=== PATIENT | female | born 1935 | race Caucasian/White ===

== ENCOUNTER 2016-10-09 07:32 | Emergency (ER) | payer MEDICARE ==
[~2016-10-09] VITALS: Ht 152.4 cm; Wt 68.2 kg
[~2016-10-09 07:32] MED LIST: ASCO100089 PO; ASPI-973 PO; DESI25TA13 PO; GABA600T2 PO; GLUC100016 PO; LEVO112T4 PO; LEVO500T16 PO; LOVA40TA PO; MAGN250T29 PO; MULT-1018 PO; OMEG-38 PO; ONDA4TAB6 PO; PANT40TA3 PO; POTA99TA21 PO; PRAM0.5T3 PO; PROM25TA14 PO; QUET200T58 PO; RANI300C PO; VITA1TAB17 PO
--- NOTE | 2016-10-09 07:37 | ED.REPORT ---
HPI-Trauma Minor / Fall Date of Service Oct 09, 2016 ED Provider: Merline Rausch MD 81 year old female presents to the ER via EMS complaining of left rib pain status post mechanical ground level fall in the shower just prior to arrival. She states that she gets periodic "ticks" in her hands an feet, which was the cause of her fall today. Her assisted her after the fall, but she reports that it took her 15 minutes to get off of the ground. Patient denies head trauma, LOC, and anticoagulant use. Nursing Notes Stated Complaint: GROUND LEVEL FALL Nursing Notes Reviewed: Yes Allergies: Coded Allergies: codeine (Verified Allergy, Unknown, 05/25/15) tramadol (Verified Allergy, Unknown, vomiting, 05/25/15) Scheduled Ascorbic Acid (Vitamin C) 1,000 Mg Tab.chew 1,000 MG PO DAILY Aspirin (Aspirin) 81 Mg Tablet 81 MG PO DAILY Desipramine (Desipramine) 25 Mg Tablet 125 MG PO HS Gabapentin (Gabapentin) 600 Mg Tablet 600 MG PO QID Glucosamine Sulfate 2Kcl (Glucosamine) 1,000 Mg Tablet 1,000 MG PO DAILY Levofloxacin (Levaquin) 500 Mg Tablet 500 MG PO DAILY Levothyroxine (Levothyroxine) 112 Mcg Tablet 125 MCG PO DAILY Lovastatin (Lovastatin) 40 Mg Tablet 40 MG PO HS Magnesium Oxide (Magnesium) 250 Mg Tablet 250 MG PO DAILY Multivitamin (Multi Vitamin Daily) 1 Each Tablet 1 EACH PO DAILY [place]-3/Dha/Epa/Fish Oil (Fish Oil 1,000 mg Softgel) 1 Each Capsule 1 EACH PO DAILY Pantoprazole DR (Pantoprazole DR) 40 Mg Tablet.dr 40 MG PO DAILY Potassium Gluconate (Potassium) 99 Mg Tablet 1 TAB PO DAILY Pramipexole Dihydrochloride (Mirapex) 0.5 Mg Tablet 0.5-1 MG PO HS Quetiapine Fumarate (Quetiapine Fumarate) 200 Mg Tablet 300 MG PO HS Ranitidine (Ranitidine) 300 Mg Capsule 300 MG PO DAILY Vitamin B Complex (Vitamin B Complex) 1 Each Tablet 1 EACH PO DAILY Scheduled PRN Naproxen (Naproxen) 375 Mg Tablet 375 MG PO BID PRN PRN For Pain Ondansetron (Zofran) 4 Mg Tablet 4 MG PO Q4H PRN PRN For Nausea Promethazine (Promethazine) 25 Mg Tablet 25 MG PO Q6H PRN PRN For Nausea oxyCODONE-Acetaminophen 5-325 mg (oxyCODONE-Acetaminophen 5-325 mg) 1 Each Tablet 1-2 TAB PO Q6H PRN PRN For Pain General Time Seen by MD: 07:36 Chief Complaint Fall, Other (Rib Pain) Hx Obtained From: Patient Arrived By: Ambulance Onset Occurred: Just prior to arrival Symptom Duration: Since onset Caused by: Accidental, Fall on ground Context: Occurred at: Home injury Location: Back (Left Rib) Quality: Painful Severity: Current: Moderate Severity: Maximum: Moderate Associated with: Denies: Loss of consciousness, Neck pain Similar Sx Previous: No Past Medical History Past Medical History 1. Gastric reflux disease 2. Hypothyroidism 3. Depression 4. Dyslipidemia 5. Anxiety. 6. Chronic back pain. 7. Hiatal hernia Past Surgical History Partial colectomy. Smoking History Never Smoker Social History Alcohol Use: "Social" Drug Use: Denies drug use Other Social History: Ambulatory Status Independent Review of Systems Respiratory: Denies: Shortness of breath Musculoskeletal: Reports: Back pain, Thoracic pain, Denies: Extremity pain, Joint pain, Lumbar pain Neurologic: Denies: Dizziness, Headache, Lightheaded, Syncope Complete sys rev & neg: except as marked. Cardiovascular: Denies: Chest pain Physical Exam Initial Vital Signs Vital Signs (First) Date Time Temp Pulse Resp B/P Pulse Ox O2 Delivery O2 Flow Rate FiO2 10/09/16 07:41 36.5 76 8 90/52 93 Room Air Initial VS: Reviewed Head / Eyes: Atraumatic, Normocephalic Abdomen / GI: Soft, Non-tender, No guarding, No rebound, No distention Extremities: Vascular intact, Neuro intact, No swelling, No tenderness Skin: Warm, Dry, No cyanosis Neurologic: Alert, Oriented, Nonfocal Psychiatric: Mood/affect normal, Behavior normal, Normal thought content General/Constitutional: Awake, Alert, Well developed, Well nourished Neck: Atraumatic, Supple, Full range of motion, No swelling, Non-tender, No midline vertebral tend Respiratory / Chest: Breath sounds NL, Breath sounds = bilat, No respiratory distress, No rales, No rhonchi, No wheezing, No chest tenderness, No chest wall deformity, No crepitus Cardiovascular: Heart rate NL, Regular rhythm, Heart sounds NL, Cap refill not delayed, Peripheral circulation NL Back: Inspection NL, Full range of motion, No midline vertebral tend Trauma - Back Specific: Positive: Rib tender L nondeformed No bruising. Tenderness in axillary line and just posterior, T10-T12 Interpretation & Diagnostics X-Ray Chest Interpretation Chest Xray Interpretation: Rib fractures left side 8 and 9. 9 is minimally NO hemo pneumo, or other infiltrates. View: Portable, 1 view Interpretation / Wet Read by: Wet read ED physician Re-Eval/Medical Decision Source of Hx: Old records Re-Evaluation/Progress : Time of Eval: 08:33 Re-Evaluation/Progress Note: Patient is now accompanied by her and daughter. Discussed radiology results and plan to discharge. Patient is amenable to the plan. Return precautions given. All other questions addressed. Counseled Regarding: Diagnosis, Lab results, Need for follow-up, When/why to return to ED Discharge & Departure Impression: Primary Impression: Rib fractures Additional Impression: Fall Disposition: Home Discharge Condition All VS Reviewed: Yes Condition: Stable Patient Instructions: Rib Fracture (DC) Additional Instructions: Your X-ray indicates that you have broken your 8th and 9th rib on the left side. You will hurt more over the next couple days. for the pain, please use Naprosyn daily for the next week. Take 1 in the morning and 1 at night to control your pain. Do not take ibuprofen while taking Naprosyn. After the first week, you can choose weather you need the naprosen or not. For severe pain not controlled with naprosen, Take 1-[address] or consume alcohol while taking narcotic pain medications. Do not take Tylenol while taking this medication. It can cause constipation so use lots of water and extra fiber. Percoset has tylenol in it, so don't use additional tylenol. Once the pain is improving, you can use just tylenol instead of the percoset. Make sure to stay active, as tolerated, and take deep breaths. Use the incentive spirometer regularly through the day ( one or two big breaths with each TV commercial break is a great idea) to prevent pneumonia in that left side. Return to the ER if you develop worsening or concerning symptoms. I'm so sorry you broke your ribs. I hope you heal quickly. Referrals: Bella Gaspar MD (PCP) Scribe Attestation Portions of this note were transcribed by Jamshid Galeano. I, Dr. Rausch, personally performed the history, physical exam and medical decision-making; I reviewed and confirmed the accuracy of the information in the transcribed note. Signed by: Aleah Massey, 10/09/2016 and 08:39 copies to: Bella Gaspar MD, Shawna L MD Oct 09, 2016 07:37 JAMSHID GALEANO Oct 09, 2016 07:45
[2016-10-09 07:41] VITALS: BP 90/52; PULSE 76; RESP 8; O2SAT 93
[2016-10-09] MEDS ORDERED: Ketorolac 15 mg/mL Inj IVPUSH ONE (08:55)
[2016-10-09] MEDS ORDERED: NAPR375T2 PO (09:17)
[2016-10-09] MEDS ORDERED: OXYC1TAB24 PO (09:17)
[2016-10-09 09:40] VITALS: BP 97/62; PULSE 81; RESP 20; O2SAT 97
[2016-10-09 10:20] VITALS: BP 97/62; PULSE 81; RESP 20; O2SAT 97
--- NOTE | 2016-10-09 16:59 | DRSVH ---
PROCEDURE: X-RAY LEFT RIBS INCLUDEING PA CHEST, MINUMUM THREE VIEWS ([id number]) INDICATIONS: fall TECHNIQUE: 3 views of the left ribs were acquired, along with a single view chest. COMPARISON: [facility], CR, XR CHEST 2VW, 11/29/2015, 8:45. FINDINGS: Surgical changes and devices: None. Bones and chest wall: Mild cortical irregularity involving the left eighth posterior lateral rib. Lungs and pleura: Hiatal hernia present. Lungs are clear and no pneumothorax is present. Mediastinum: Mediastinal contours appear normal. Heart size is enlarged. IMPRESSION: Possible left eighth posterior lateral rib fracture and no pneumothorax is present. Dictated by: Collins Faustin RRA Interpreted: Mary Liu MD on 10/09/2016 at 8:54 Transcribed by: MARISSA on 10/09/2016 at 8:55 Approved by: Mary Liu MD, PhD on 10/09/2016 at 16:57
== END 2016-10-09 09:18 | disposition home or self-care (01) ==
LOC: SED 07:32 → EDBD 07:32 → SED 09:18
DX: S22.42XA Multiple fractures of ribs, left side, initial encounter for closed fracture (principal); W18.2XXA Fall in (into) shower or empty bathtub, initial encounter; Y93.E1 Activity, personal bathing and showering; Y99.8 Other external cause status; Y92.012 Bathroom of single-family (private) house as the place of occurrence of the external cause; K21.9 Gastro-esophageal reflux disease without esophagitis; E03.9 Hypothyroidism, unspecified; E78.5 Hyperlipidemia, unspecified; G89.29 Other chronic pain; Z90.49 Acquired absence of other specified parts of digestive tract; Z79.82 Long term (current) use of aspirin; Z88.5 Allergy status to narcotic agent; Z88.8 Allergy status to other drugs, medicaments and biological substances
CPT/HCPCS: 71101; 94640; 96374; 99284; J1885

== ENCOUNTER 2016-11-14 05:45 | Emergency (ER) | payer MEDICARE ==
[~2016-11-14] VITALS: Ht 152.4 cm; Wt 70.0 kg
[~2016-11-14 05:45] MED LIST changes: +NAPR375T2 PO; +OXYC1TAB24 PO
[2016-11-14 05:49] VITALS: BP 126/78; PULSE 96; RESP 18; O2SAT 95
--- NOTE | 2016-11-14 06:13 | ED.REPORT ---
HPI-Abd Pain F 40 and Over Date of Service Nov 14, 2016 ED Provider: Carlitos Garcia DO The patient is a 81 year old female w/ a hx of chronic constipation who presents to the ED due to constipation for the past 5 days. She takes milk of magnesia on a regular basis, took an extra large dose yesterday, but it was not effective. She also tried a dose of X-lax and an enema. After the enema, she produced some clear liquid, but no stool. She denies fever, vomiting, or abdominal pain. Nursing Notes Stated Complaint: CANT GO TO THE BATHROOM Chief Complaint: Female Abdominal Pain Nursing Notes Reviewed: Yes Allergies: Coded Allergies: codeine (Verified Allergy, Unknown, 05/25/15) tramadol (Verified Allergy, Unknown, vomiting, 05/25/15) Scheduled Ascorbic Acid (Vitamin C) 1,000 Mg Tab.chew 1,000 MG PO DAILY Aspirin (Aspirin) 81 Mg Tablet 81 MG PO DAILY Desipramine (Desipramine) 25 Mg Tablet 125 MG PO HS Gabapentin (Gabapentin) 600 Mg Tablet 600 MG PO QID Glucosamine Sulfate 2Kcl (Glucosamine) 1,000 Mg Tablet 1,000 MG PO DAILY Levofloxacin (Levaquin) 500 Mg Tablet 500 MG PO DAILY Levothyroxine (Levothyroxine) 112 Mcg Tablet 125 MCG PO DAILY Lovastatin (Lovastatin) 40 Mg Tablet 40 MG PO HS Magnesium Oxide (Magnesium) 250 Mg Tablet 250 MG PO DAILY Multivitamin (Multi Vitamin Daily) 1 Each Tablet 1 EACH PO DAILY [place]-3/Dha/Epa/Fish Oil (Fish Oil 1,000 mg Softgel) 1 Each Capsule 1 EACH PO DAILY Pantoprazole DR (Pantoprazole DR) 40 Mg Tablet.dr 40 MG PO DAILY Potassium Gluconate (Potassium) 99 Mg Tablet 1 TAB PO DAILY Pramipexole Dihydrochloride (Mirapex) 0.5 Mg Tablet 0.5-1 MG PO HS Quetiapine Fumarate (Quetiapine Fumarate) 200 Mg Tablet 300 MG PO HS Ranitidine (Ranitidine) 300 Mg Capsule 300 MG PO DAILY Vitamin B Complex (Vitamin B Complex) 1 Each Tablet 1 EACH PO DAILY Scheduled PRN Naproxen (Naproxen) 375 Mg Tablet 375 MG PO BID PRN PRN For Pain Ondansetron (Zofran) 4 Mg Tablet 4 MG PO Q4H PRN PRN For Nausea Polyethylene Glycol 3350 (Miralax) 17 Gm Powd.pack 17 GM PO DAILY PRN PRN For Constipation Promethazine (Promethazine) 25 Mg Tablet 25 MG PO Q6H PRN PRN For Nausea oxyCODONE-Acetaminophen 5-325 mg (oxyCODONE-Acetaminophen 5-325 mg) 1 Each Tablet 1-2 TAB PO Q6H PRN PRN For Pain General Time Seen by MD: 06:04 Chief Complaint Constipation Hx Obtained From: Patient Arrived By: Walk-in Sudden in Onset?: Yes Onset Occurred: 5 days ago Symptom Duration: Since onset Progression since Onset: Unchanged Severity: Current: No pain currently Recent Healthcare: No recent doctor visit, No recent hospitalization Similar Sx Previous: Yes Past Medical History Past Medical History 1. Gastric reflux disease 2. Hypothyroidism 3. Depression 4. Dyslipidemia 5. Anxiety. 6. Chronic back pain. 7. Hiatal hernia Past Surgical History Partial colectomy. Smoking History Never Smoker Social History Alcohol Use: "Social" Drug Use: Denies drug use Other Social History: Ambulatory Status Independent Review of Systems Constitutional: Denies: Fever GI: Reports: Constipation, Denies: Abdominal pain, Vomiting Complete sys rev & neg: except as marked. Physical Exam Vital Signs Vital Signs (First) Date Time Temp Pulse Resp B/P Pulse Ox O2 Delivery O2 Flow Rate FiO2 11/14/16 05:49 36.5 96 18 126/78 95 Room Air Initial VS: Reviewed Head / Eyes: Atraumatic, Normocephalic, PERRL ENT: Mucous membranes moist, Conjunctiva normal, No scleral icterus Skin: Warm, Dry Neurologic: Alert, Oriented Psychiatric: Mood/affect normal, Behavior normal General/Constitutional: Awake, Alert, Cooperative, Not toxic appearing Respiratory / Chest: Atraumatic, Breath sounds NL, Breath sounds = bilat Cardiovascular: Heart rate NL, Regular rhythm, Heart sounds NL, No gallop, No murmurs, No rubs Abdomen: Atraumatic, Soft, Non-tender, No guarding, No rebound, BS normoactive , No distention Back: Atraumatic, Full range of motion, Non-tender Rectum / Perineum: No fecal impaction Re-Eval/Medical Decision Med Decision/Clinical Course Constipation with a history of constipation and no vital sign abnormalities or abdominal pain on exam. Patient is given an enema and magnesium citrate in the ER. Additional bowel regimen is recommended. Return and follow-up precautions given. Counseled Regarding: Diagnosis, Lab results, Need for follow-up, When/why to return to ED Discharge & Departure Primary Impression: Constipation Constipation type: unspecified constipation type Qualified Code: K59.00 - Constipation, unspecified Disposition: Home Discharge Condition All VS Reviewed: Yes Condition: Stable Additional Instructions: Use the milk of magnesia 30 ml 2x/day. Take miralax daily. Do a Fleet enema, starting tomorrow daily for the next two days. Once you have a substantial bowel movement, return to your routine of 1 dose of milk of magnesia a day. Follow up with your primary care physician as needed. Return to the Emergency Department for any new or worsening symptoms including fever, vomiting, and abdominal pain. I hope you feel better soon! Referrals: Bella Gaspar MD (PCP) Herminioibe Attestation Portion of this note were transcribed by Carli Berkowitz. I, Dr. Garcia, personally performed the history, physical exam, and medical decision-making: I reviewed and confirmed the accuracy for the information in the transcribed note. Signed by: joyce Francis, 11/14/16 0800 copies to: Bella Gaspar MD, Timothy S DO Nov 14, 2016 06:13 Carli Berkowitz Nov 14, 2016 06:27
[2016-11-14] MEDS ORDERED: POLY17PO6 PO (07:08)
[2016-11-14 07:24] VITALS: BP 118/58; PULSE 88; RESP 12; O2SAT 99
[2016-11-14 07:25] VITALS: BP 118/58; PULSE 88; RESP 12; O2SAT 99
== END 2016-11-14 07:26 | disposition home or self-care (01) ==
LOC: SED 05:45
DX: K59.00 Constipation, unspecified (principal); K21.9 Gastro-esophageal reflux disease without esophagitis; E03.9 Hypothyroidism, unspecified; Z79.82 Long term (current) use of aspirin; Z88.5 Allergy status to narcotic agent

== ENCOUNTER 2017-01-03 14:07 | Emergency (ER) | payer MEDICARE ==
[~2017-01-03 14:07] MED LIST changes: +POLY17PO6 PO
[2017-01-03 14:12] VITALS: BP 124/76; PULSE 96; RESP 18; O2SAT 96
--- NOTE | 2017-01-03 15:08 | ED.REPORT ---
HPI-Abd Pain F 40 and Over Date of Service January 03, 2017 ED Provider: Dr. Tito Veronica The patient is a 81 year old female w/ a hx of chronic constipation, gastric reflux disease, hypothyroidism, dyslipidemia, and anxiety who presents to the ED due to constipation onset 4 days ago. C/o associated back pain. It has been 4 days since her last bowel movement. She does not have any kind of discomfort or any bowel urgency at all. She took milk of magnesia yesterday and Metamucil, x-lax, and a fleet enema this morning, with no relief of symptoms. She denies abdominal pain, nausea, vomiting, chest pain, and dysuria. The patient was seen at [facility] for similar symptoms on 11/14/16. Nursing Notes Stated Complaint: CONSTIPATION Chief Complaint: Female Abdominal Pain Nursing Notes Reviewed: Yes Allergies: Coded Allergies: codeine (Verified Allergy, Unknown, 05/25/15) tramadol (Verified Allergy, Unknown, vomiting, 05/25/15) Scheduled Ascorbic Acid (Vitamin C) 1,000 Mg Tab.chew 1,000 MG PO DAILY Aspirin (Aspirin) 81 Mg Tablet 81 MG PO DAILY Desipramine (Desipramine) 25 Mg Tablet 125 MG PO HS Gabapentin (Gabapentin) 600 Mg Tablet 600 MG PO QID Glucosamine Sulfate 2Kcl (Glucosamine) 1,000 Mg Tablet 1,000 MG PO DAILY Levofloxacin (Levaquin) 500 Mg Tablet 500 MG PO DAILY Levothyroxine (Levothyroxine) 112 Mcg Tablet 125 MCG PO DAILY Lovastatin (Lovastatin) 40 Mg Tablet 40 MG PO HS Magnesium Oxide (Magnesium) 250 Mg Tablet 250 MG PO DAILY Multivitamin (Multi Vitamin Daily) 1 Each Tablet 1 EACH PO DAILY [place]-3/Dha/Epa/Fish Oil (Fish Oil 1,000 mg Softgel) 1 Each Capsule 1 EACH PO DAILY Pantoprazole DR (Pantoprazole DR) 40 Mg Tablet.dr 40 MG PO DAILY Polyethylene Glycol 3350 (Miralax) 17 Gm Powd.pack 17 GM PO DAILY Potassium Gluconate (Potassium) 99 Mg Tablet 1 TAB PO DAILY Pramipexole Dihydrochloride (Mirapex) 0.5 Mg Tablet 0.5-1 MG PO HS Quetiapine Fumarate (Quetiapine Fumarate) 200 Mg Tablet 300 MG PO HS Ranitidine (Ranitidine) 300 Mg Capsule 300 MG PO DAILY Vitamin B Complex (Vitamin B Complex) 1 Each Tablet 1 EACH PO DAILY Scheduled PRN Naproxen (Naproxen) 375 Mg Tablet 375 MG PO BID PRN PRN For Pain Ondansetron (Zofran) 4 Mg Tablet 4 MG PO Q4H PRN PRN For Nausea Polyethylene Glycol 3350 (Miralax) 17 Gm Powd.pack 17 GM PO DAILY PRN PRN For Constipation Promethazine (Promethazine) 25 Mg Tablet 25 MG PO Q6H PRN PRN For Nausea oxyCODONE-Acetaminophen 5-325 mg (oxyCODONE-Acetaminophen 5-325 mg) 1 Each Tablet 1-2 TAB PO Q6H PRN PRN For Pain General Time Seen by MD: 15:07 Chief Complaint Constipation Hx Obtained From: Patient Arrived By: Walk-in Sudden in Onset?: Yes Onset Occurred: 4 days ago Symptom Duration: Since onset Location: : Back Quality: Painful Severity: Current: Mild Recent Healthcare: No recent doctor visit, No recent hospitalization Similar Sx Previous: Yes Past Medical History Past Medical History 1. Gastric reflux disease 2. Hypothyroidism 3. Depression 4. Dyslipidemia 5. Anxiety. 6. Chronic back pain. 7. Hiatal hernia Past Surgical History Partial colectomy. Smoking History Never Smoker Social History Alcohol Use: "Social" Drug Use: Denies drug use Other Social History: Ambulatory Status Independent Review of Systems denies abdominal pain, nausea, vomiting, chest pain, and dysuria Cardiovascular: Denies: Chest pain GI: Reports: Constipation, Denies: Abdominal pain, Nausea, Vomiting Female: Denies: Dysuria Musculoskeletal: Reports: Back pain Complete sys rev & neg: except as marked. Physical Exam Vital Signs Vital Signs (First) Date Time Temp Pulse Resp B/P Pulse Ox O2 Delivery O2 Flow Rate FiO2 01/03/17 14:12 36.5 96 18 124/76 96 Room Air Initial VS: Reviewed ENT: Mucous membranes moist Neck: Supple Skin: Warm, Dry Neurologic: Alert, Oriented Psychiatric: Mood/affect normal, Behavior normal General/Constitutional: Awake, Alert, Cooperative, Not toxic appearing Respiratory / Chest: Atraumatic, No respiratory distress Cardiovascular: Heart rate NL, No gallop, No murmurs, No rubs Abdomen: Soft, Non-tender, BS normoactive Back: Atraumatic, Full range of motion Head / Eyes: Atraumatic, Normocephalic, PERRL Rectum / Perineum: Atraumatic no stool in the vault Re-Eval/Medical Decision Med Decision/Clinical Course History of constipation, concerned due to no BM for 4 days but not uncomfortable. Passing gas, does not appear obstructed. will start magaly lax Re-Evaluation/Progress : Time of Eval: 16:20 Re-Evaluation/Progress Note: Pt rechecked. Normal rectal exam. Informed pt of diagnosis and plan for treatment. Pt understands and agrees with plan. F/U and RTER warnings given. All questions addressed. Counseled Regarding: Diagnosis, Lab results, Need for follow-up, When/why to return to ED Discharge & Departure Primary Impression: Constipation Constipation type: unspecified constipation type Qualified Code: K59.00 - Constipation, unspecified Disposition: Home Discharge Condition All VS Reviewed: Yes Condition: Stable Patient Instructions: Constipation (ED) Additional Instructions: Thank you for entrusting us with your care today. Get started on MiraLAX today, this may take a few days to work. Begin taking Metamucil every day and a regular dose of Milk of Magnesia. Follow up with your primary care physician if you develop fevers, nausea, or vomiting. Return to the Emergency Room for any new or worsening symptoms. I hope you feel better soon! Referrals: Xenia Vogt (PCP) Joyce Attestation Portion of this note were transcribed by Carli Berkowitz. I, , personally performed the history, physical exam, and medical decision-making: I reviewed and confirmed the accuracy for the information in the transcribed note. Signed by: joyce Francis, 01/03/17 1700 copies to: Xenia Vogt Donald L MD January 03, 2017 15:08 aCrli Berkowitz January 03, 2017 15:32
[2017-01-03] MEDS ORDERED: POLY17PO6 PO (16:33)
[2017-01-03 16:41] VITALS: BP 130/74; PULSE 70; RESP 16; O2SAT 99
== END 2017-01-03 16:42 | disposition home or self-care (01) ==
LOC: SED 14:07
DX: K59.00 Constipation, unspecified (principal); E03.9 Hypothyroidism, unspecified; E78.5 Hyperlipidemia, unspecified; K21.9 Gastro-esophageal reflux disease without esophagitis; G89.29 Other chronic pain; Z79.82 Long term (current) use of aspirin; Z88.5 Allergy status to narcotic agent; Z88.8 Allergy status to other drugs, medicaments and biological substances